=== PATIENT | male | born 1975 | race Hispanic/Latino ===

== ENCOUNTER 2016-08-04 13:54 | Emergency (ER) | payer OTHER ==
[~2016-08-04] VITALS: Ht 172.7 cm; Wt 90.7 kg
[2016-08-04 14:00] VITALS: BP 156/74
[2016-08-04] MEDS ORDERED: OMEPRAZOLE40 M1 PO (14:32)
--- NOTE | 2016-08-04 14:50 | ED MVC/FALL/TRAUMA COMPLAINT ---
History of Present Illness General Chief Complaint: Fall Stated Complaint: FALL, MULTIPLE COMPLAINTS Vital Signs & Intake/Output Vital Signs & Intake/Output Vital Signs Date Time Temp Pulse Resp B/P Pulse O2 O2 Flow FiO2 Ox Delivery Rate 08/04 1400 97.0 100 18 156/74 98 Room Air Allergies Coded Allergies: acetaminophen (From TYLENOL) (RASH 08/04/16) ibuprofen (RASH 08/04/16) tramadol (RASH 08/04/16) Reconcile Medications Omeprazole 40 MG CAPSULE.DR 1 CAP PO DAILY GI (Reported) Triage Note: PT TO ER WITH MULTIPLE COMPLAINTS, STATES THAT LAST SUNDAY HE TRIPPED AND FELL ON SIDEWALK WALKING HOME FROM TRAIN STATION, STATES THAT HE FELL BACKWARDS AND HIT THE BACK OF HIS HEAD, DENIES LOC, ALSO STATES THAT HE HAS L ELBOW PAIN,R FOOT PAIN AND L TOE PAIN. PT REFUSES MOTRIN OR TYLENOL AT TRIAGE, STATES THAT HE IS ALLERGIC AND HE GETS ITCHY. Past History Travel History Traveled to [place] past 21 day No Medical History Neurological: NONE EENT: NONE Cardiovascular: hypertension Respiratory: NONE Gastrointestinal: GERD Hepatic: NONE Renal: NONE Musculoskeletal: chronic back pain Psychiatric: depression Endocrine: NONE Blood Disorders: NONE Cancer(s): NONE Psychosocial History What is your primary language Maori Tobacco Use: Never used ETOH Use: denies use Illicit Drug Use: denies illicit drug use Departure Departure Condition: Stable Referrals: PATIENT HAS NO PRIMARY CARE DR (PCP/Family) Departure Forms: Customer Survey General Discharge Information
== END 2016-08-04 15:00 | disposition admitted as inpatient to this hospital (09) ==
LOC: ERH 13:54
DX: M25.522 Pain in left elbow (principal); M79.671 Pain in right foot; M79.675 Pain in left toe(s); W18.39XA Other fall on same level, initial encounter

== ENCOUNTER 2016-08-09 12:58 | Emergency (ER) | payer OTHER ==
[~2016-08-09] VITALS: Ht 172.7 cm; Wt 90.7 kg
[~2016-08-09 12:58] MED LIST: OMEPRAZOLE40 M1 PO
--- NOTE | 2016-08-09 13:34 | ED GENERAL ADULT ---
History of Present Illness General Chief Complaint: Upper Extremity Problem Stated Complaint: L ELBOW PAIN Source: patient, old records Exam Limitations: no limitations Vital Signs & Intake/Output Vital Signs & Intake/Output Vital Signs Date Time Temp Pulse Resp B/P Pulse O2 O2 Flow FiO2 Ox Delivery Rate 08/09 1451 98.7 81 18 143/105 98 08/09 1303 97.7 97 20 142/104 97 Room Air Allergies Coded Allergies: acetaminophen (From TYLENOL) (RASH 08/04/16) ibuprofen (RASH 08/04/16) tramadol (RASH 08/04/16) Reconcile Medications Omeprazole 40 MG CAPSULE. 1 CAP PO DAILY GI (Reported) Oxycodone HCl 5 MG TABLET 1 TAB PO BIDP PRN PAIN Triage Note: PT C/O LEFT ELBOW PAIN AND PAIN UNDER LEFT TOES. STATES HE TRIPPED AND FELL A WEEK AGO INJURING THE BACK OF HIS HEAD AND LOWER BACK Triage Nurses Notes Reviewed? yes Onset: Gradual Duration: week(s): (1) Timing: remote history Injury Environment: home Severity: moderate Modifying Factors: Improves With: immobilization. Worsens With: movement. HPI: Patient is a 40-year-old male presenting to the emergency department with chief complaint of left foot, left elbow pain after falling about 1-2 weeks ago. Patient reports that he stepped in a pothole while walking and fell and landed on his left elbow. He also reports that he hit the back of his head. No loss of consciousness. Denies any nausea or vomiting. No dizziness or visual changes. Denies any precipitating factors prior to the fall. He has been using Tylenol without relief. Pain is achy throbbing worse with ambulation and palpation. He checked into the emergency department about one week ago for evaluation of the pain but decided not to wait because there were several people here and waiting too long. Denies seeking out care from his primary care physician. (MAY PEGUERO) Past History Travel History Traveled to [place] past 21 day No Medical History Any Pertinent Medical History? see below for history Neurological: NONE EENT: NONE Cardiovascular: hypertension Respiratory: NONE Gastrointestinal: GERD Hepatic: NONE Renal: NONE Musculoskeletal: chronic back pain Psychiatric: depression Endocrine: NONE Blood Disorders: NONE Cancer(s): NONE Surgical History Surgical History: non-contributory Psychosocial History What is your primary language Vietnamese Tobacco Use: Never used ETOH Use: denies use Illicit Drug Use: denies illicit drug use Family History Hx Contributory? No (MAY PEGUERO) Review of Systems Review of Systems Constitutional: Reports: no symptoms. Comments Review of systems: See HPI, All other systems negative. Constitutional, no chills fever or weight loss HEENT: No visual changes no sore throat no congestion Cardiovascular: No chest pain ,palpitation , orthopnea or ankle swelling Skin, no jaundice no rashes Respiratory: No dyspnea cough sputum or hemoptysis GI: No nausea no vomiting : No dysuria No hematuria Muscle skeletal: no back pain, no neck pain, Neurologic: No numbness no confusion Psych: No stress anxiety or depression,. Heme/endocrine: No bruising no bleeding no polyuria or polydipsia Immunology: No splenectomy or history of AIDS (MAY PEGUERO) Physical Exam Physical Exam General Appearance: well developed/nourished, no apparent distress, alert, awake , comfortable Comments: Well-developed well-nourished person in no acute distress HEENT: Normal EENT exam, extraocular motion intact, no nystagmus. Pupils equally round and reactive to light and accommodation. Nose is atraumatic. External auditory canal and Tympanic membranes clear. Pharynx normal. No swelling or edema. No bogginess or step off deformities palpated on the scalp. Neck: Supple, no lymphadenopathy, normal range of motion without pain or tenderness, no C-spine tenderness. Back: Nontender, no CVA tenderness. Full range of motion Cardiovascular: Regular rate and rhythms no murmurs rubs or gallops, normal JVP Respiratory: Chest nontender. No respiratory distress.breath sounds clear to auscultation bilaterally Extremity: No edema, no calf tenderness to palpation, normal and equal pulses. Tender to palpation over the ball of the left foot, no signs of trauma. Full range of motion of left foot, left ankle. Tender to palpation over the left lateral epicondyle, full range of motion of left elbow. No obvious deformity or edema. Neuro: Alert oriented x3, motor sensory normal, cranial nerves II through XII grossly intact. Cerebellar testing is unremarkable. Skin: No appreciable rash on exposed skin, skin is warm and dry. Psych: Mood and affect is normal, memory and judgment is normal. Core Measures ACS in differential dx? No CVA/TIA Diagnosis: No Severe Sepsis Present: No Septic Shock Present: No (MAY PEGUERO) Progress Differential Diagnoses I considered the following diagnoses in my evaluation of the patient: Fracture, dislocation, contusion, minor head injury, concussion Plan of Care: Orders Procedure Date/time Status XRY-FOOT COMPLETE, LEFT 08/09 1400 Active XRY-ELBOW 3 OR MORE VIEWS, L 08/09 1400 Active Diagnostic Imaging: Viewed by Me: Radiology Read. Discussed w/RAD: Radiology Read. Radiology Impression: PATIENT: YOON YOUNG PRESENT AGE: 40 PATIENT ACCOUNT NO: [id number] : 73 LOCATION: [facility] ORDERING PHYSICIAN: MAY IRVIN SERVICE DATE: 08/09/16 EXAM TYPE: RAD - XRY-ELBOW 3 OR MORE VIEWS, L; XRY-FOOT COMPLETE, LEFT EXAMINATION: LEFT ELBOW SERIES LEFT FOOT SERIES CLINICAL INFORMATION: Pain after fall COMPARISON: None TECHNIQUE: 4 views of the left elbow and 3 views of the left foot FINDINGS: Left elbow: The bones joints and soft tissues are normal. Left foot: Small plantar calcaneal spur. The bones joints and soft tissues are normal. IMPRESSION: Left elbow: Normal. Left foot: Small plantar calcaneal spur Initial ED EKG: none (MAY PEGUERO) Departure Departure Time of Disposition: 150 Disposition: HOME OR SELF CARE Condition: Stable Clinical Impression Primary Impression: Contusion Qualifiers: Encounter type: initial encounter Contusion area: elbow Laterality: left Qualified Code: S50.02XA - Contusion of left elbow, initial encounter Referrals: PATIENT HAS NO PRIMARY CARE DR (PCP/Family) Additional Instructions: Follow-up with your primary care physician call to make an appointment. Rest ice and elevate. Take oxycodone as prescribed for pain. Return for worsening symptoms or concerns. Departure Forms: Customer Survey General Discharge Information Prescriptions: Current Visit Scripts Oxycodone HCl 1 TAB PO BIDP PRN PAIN #6 TAB (MAY PEGUERO) PA/GRAIN MIXER Co-Sign Statement Statement: ED Attending supervision documentation- [] I saw and evaluated the patient. I have also reviewed all the pertinent lab results and diagnostic results. I agree with the findings and the plan of care as documented in the PA's/GRAIN MIXER's documentation. x I have reviewed the ED Record and agree with the PA's/GRAIN MIXER's documentation. [] Additions or exceptions (if any) to the PAs/GRAIN MIXER's note and plan are summarized below: [] (SANJEEV EGAN,EFFIE) Critical Care Note Critical Care Note Critical Care Time: non-applicable (JAMMIE IRVIN,MAY)
[2016-08-09 14:51] VITALS: BP 143/105
--- NOTE | 2016-08-09 14:52 | RADIOLOGY REPORT ---
EXAMINATION: LEFT ELBOW SERIES LEFT FOOT SERIES CLINICAL INFORMATION: Pain after fall COMPARISON: None TECHNIQUE: 4 views of the left elbow and 3 views of the left foot FINDINGS: Left elbow: The bones joints and soft tissues are normal. Left foot: Small plantar calcaneal spur. The bones joints and soft tissues are normal. IMPRESSION: Left elbow: Normal. Left foot: Small plantar calcaneal spur
[2016-08-09] MEDS ORDERED: OXYCODONE HCL5 M1 PO (15:09)
== END 2016-08-09 15:16 ==
LOC: ERH 12:58
DX: S59.902A Unspecified injury of left elbow, initial encounter (principal); S99.922A Unspecified injury of left foot, initial encounter; W18.09XA Striking against other object with subsequent fall, initial encounter; Y92.9 Unspecified place or not applicable; Y93.01 Activity, walking, marching and hiking
CPT/HCPCS: 73080-LT; 73630-LT

== ENCOUNTER 2016-10-02 13:01 | Emergency (ER) | payer OTHER ==
[~2016-10-02] VITALS: Ht 167.6 cm; Wt 95.3 kg
[~2016-10-02 13:01] MED LIST changes: +OXYCODONE HCL5 M1 PO
[2016-10-02 13:24] VITALS: BP 148/100
--- NOTE | 2016-10-02 13:40 | ED NECK/BACK PAIN COMPLAINT ---
History of Present Illness General Chief Complaint: General Adult Stated Complaint: NEEDS PAIN MED FELL LAST FELL 08/06 Source: patient, old records Exam Limitations: no limitations Vital Signs & Intake/Output Vital Signs & Intake/Output Vital Signs Date Time Temp Pulse Resp B/P B/P Pulse O2 O2 Flow FiO2 Mean Ox Delivery Rate 10/02 1324 98.6 100 18 148/100 98 Room Air Allergies Coded Allergies: ketorolac (From TORADOL) (Mild, RASH 10/02/16) ibuprofen (RASH 08/04/16) tramadol (RASH 08/04/16) acetaminophen (From TYLENOL) (Intermediate, VOMITING 10/02/16) Reconcile Medications Cyclobenzaprine HCl 5 MG TABLET 1 TAB PO TIDPRN PRN PAIN Omeprazole 40 MG CAPSULE.DR 1 CAP PO DAILY GI (Reported) Omeprazole 40 MG CAPSULE.DR 1 CAP PO DAILY PRN GERD Oxycodone HCl 5 MG TABLET 1 TAB PO BIDP PRN PAIN Oxycodone HCl/Acetaminophen (Percocet 5-325 MG Tablet) 5 MG-325 MG TABLET 1 TAB PO BID PRN PAIN Triage Note: 41 YO MALE TO TRIAGE C/O PAIN IN LOWER BACK AND BILATERAL LEGS. STATES WAS SENT IN BY MD FOR EVAL OF BILATERAL LEGS. PT STATES HE FELL ON 08/08 AND HAS HAD PAIN SINCE. Triage Nurses Notes Reviewed? yes Onset: Gradual Duration: week(s): (4), constant, waxing and waning Timing: recent history Quality/Severity: mild, moderate Location: R ANKLE L FOOT,LOW BACK Radiation: none Method of Injury: fall Loss of Consciousness: no loss of consciousness Modifying Factors: movement, pain medication, rest Associated Symptoms: DENIES HPI: 41-year-old male presents to ER with multiple complaints. He is complaining of right medial ankle and left second toe pain status post fall on August 08 as well as lower back pain. He states that he tripped over a concrete sidewalk The patient states that he is attempting to have a midline hernia repaired however states he was told that he needs to be cleared by orthopedist first prior to his hernia repair in regards to his ankle which she has not done. He ran out of pain medicine 2 weeks ago he states, he states feeling that helps is Percocet no recent new trauma or fall no numbness or tingling. He denies head pain head strike headache nausea vomiting chest pain or upper back pain. Patient is noted to be ambulatory to room 20 with steady gait by self (NURIA NIEVES) Past History Travel History Traveled to [place] past 21 day No Medical History Any Pertinent Medical History? see below for history Neurological: NONE EENT: NONE Cardiovascular: hypertension Respiratory: NONE Gastrointestinal: GERD Hepatic: NONE Renal: NONE Musculoskeletal: chronic back pain Psychiatric: depression Endocrine: NONE Blood Disorders: NONE Cancer(s): NONE Surgical History Surgical History: non-contributory Psychosocial History What is your primary language Hungarian Tobacco Use: Never used Family History Hx Contributory? No (NURIA NIEVES) Review of Systems Review of Systems Constitutional: Reports: see HPI. All Other Systems: Reviewed and Negative Comments Review of systems: See HPI, All other systems negative. Constitutional, no chills no fever, no malaise HEENT: No visual changes no sore throat no congestion, no ear pain Cardiovascular: No chest pain , no palpitation , Skin: no rashes, no change in skin Respiratory: No dyspnea no cough no sputum GI: No nausea no vomiting, no diarrhea : No dysuria Muscle skeletal: No joint pain, no joint swelling, back pain, no neck pain, Neurologic: No numbness no confusion, no headache Psych: No stress no depression,. Heme/endocrine: No bruising no bleeding Immunology: No lymphadenopathy (NURIA NIEVES) Physical Exam Physical Exam General Appearance: well developed/nourished, alert, awake Neck: supple, full range of motion, normal alignment Comments: Well-developed well-nourished person in no acute distress HEENT: Normal EENT exam; PERRL, EOMI, no nystagmus. HEAD is atraumatic. moist mucous membranes. Neck: Supple, normal range of motion without pain or tenderness Back: Nontender, no CVA tenderness. Full range of motion Cardiovascular: Regular rate and rhythms no murmurs rubs or gallops, normal JVP Respiratory: Chest nontender.There were no bony deformities, no asymmetry. No respiratory distress. Patient speaking in full complete sentences. Breath sounds clear to auscultation bilaterally: NO W/R/R Abdomen: Soft, nontender nondistended, Upper Extremity: No edema, full range of motion of extremities, normal and equal pulses bilaterally, 5 out of 5 strength noted to bilateral upper extremities Hip/Pelvis: Atraumatic/Stable. FROM. No pain with pelvic compression Knee: Atraumatic/stable. FROM. No joint swelling, no effusion. No laxity. Leg: Atraumatic. Nontender. No edema, 5 out of 5 strength in the lower extremity, normal dorsiflexion of great toe bilaterally, gross sensation is intact, patellar tendon reflex 2+ bilaterally. Ankle/Foot: Atraumatic/stable. Skin intact. FROM. No swelling, no effusion. No laxity on exam Pulses: Normal/equal DP/PT pulses bilaterally. Brisk cap refill Neuro: Alert oriented x3, motor sensory normal, There were no obvious focal neurologic abnormalities. Skin: No appreciable rash on exposed skin, skin is warm and dry. Psych: Mood and affect is normal, memory and judgment is normal. (JAMAL IRVIN,NURIA) Progress Differential Diagnosis: cauda equina syn, herniated disc, myofascial strain, spinal cord inj, FRACTURE SPRAIN CONTUSION Plan of Care: Orders Procedure Date/time Status XRY-TOES, LEFT 10/02 1351 Active XRY-ANKLE 3 OR MORE VIEWS R 10/02 1351 Active X-rays ordered CT [employer] PERSON reviewed Patient clinically looks well. Patient has no evidence of radiculopathy. No urinary bowel dysfunction. No numbness in the genital area. Strength intact. Gross sensation intact. Patient resting comfortably and in no apparent distress. Pain is worse with range of motion. Pain is reproducible IN back with no bruising or ecchymosis noted. . Patient is to follow-up with primary care doctor. May need MRI of the lower back at some point time. No concerns for cauda equina at this point time. I considered this diagnosis but patient does not have any symptoms consistent with cauda equina. Patient has no secondary causes of back pain. No cardiac, pulmonary, or abdominal complaints. No abdominal pain on exam. Cardiac pulmonary exam within normal limits. No rashes, afebrile, denies recent weight loss, dizziness, lightheadedness I discussed with the patient at length all of their results and incidental findings regarding a broken screw I discussed with him need to follow-up with his orthopedist. I had an extensive conversation regarding need for close follow up with their primary care physician this week as well as return precautions. I answered all of their questions, they feel comfortable with the plan and follow-up care. I discussed with the patient/family the medications that they will receive. I gave them signs and symptoms that could indicate an adverse reaction. I have advised them to limit their activities until they can see how they respond to the medication. (NURIA NIEVES) Departure Departure Disposition: HOME OR SELF CARE Condition: Stable Clinical Impression Primary Impression: Chronic ankle pain Referrals: PATIENT HAS NO PRIMARY CARE DR (PCP/Family) Additional Instructions: FOLLOW UP WITH YOUR ORTHOPEDIST WELL ASYOUR PMD THIS WEEK. OMPERAZOLE AND FLEXERIL DIRECTED. PERCOCET FOR BREAKTHROUGH PAIN- this is a narcotic and highly addictive no driving or drinking alcohol while taking Departure Forms: Customer Survey General Discharge Information Prescriptions: Current Visit Scripts Omeprazole 1 CAP PO DAILY PRN GERD #30 CAP Cyclobenzaprine HCl 1 TAB PO TIDPRN PRN PAIN #10 TAB Oxycodone HCl/Acetaminophen (Percocet 5-325 MG Tablet) 1 TAB PO BID PRN PAIN #10 TAB (NURIA NIEVES) PA/DIRECTOR EDUCATIONAL RADIO Co-Sign Statement Statement: ED Attending supervision documentation- I saw and evaluated the patient. I have also reviewed all the pertinent lab results and diagnostic results. I agree with the findings and the plan of care as documented in the PA's/DIRECTOR EDUCATIONAL RADIO's documentation. x I have reviewed the ED Record and agree with the PA's/DIRECTOR EDUCATIONAL RADIO's documentation. [] Additions or exceptions (if any) to the PAs/DIRECTOR EDUCATIONAL RADIO's note and plan are summarized below: [] (SANJEEV EGAN,EFFIE)
[2016-10-02] MEDS ORDERED: OMEPRAZOLE40 M1 PO (13:53)
[2016-10-02] MEDS ORDERED: CYCLOBENZAPRINE5 M2 PO (13:53)
[2016-10-02] MEDS ORDERED: PERCOCET 5-3251 EACH PO (13:53)
--- NOTE | 2016-10-02 14:59 | RADIOLOGY REPORT ---
EXAMINATION: LEFT TOES/RIGHT ANKLE CLINICAL INFORMATION: Injury with pain COMPARISON: Left foot films from 08/09/2016 TECHNIQUE: AP film of the left foot and 2 views of the left toes. 3 views of the right ankle FINDINGS: Left toes: No fracture, dislocation, or other acute bony or joint space abnormality is seen with attention to the distal anterior phalangeal joint of the second toe. No focal bone lesion is identified. There is no change compared to the 08/09/2016 study. Right ankle: There is a metallic plate along the lateral aspect of the distal fibula transfixed by a proximal and distal intact screw. A third screw traverses the metallic plate and crosses the inter osseous region into the distal tibia. This screw is broken within the distal tibia. There is no evidence for erosion of the bone around the screw and no acute bony fracture is seen. An additional screw crossing the interosseous region has been removed with a residual ghost tract. Endobutton is seen over the anteromedial aspect of the distal tibia just cephalad to the medial malleolus. There is a small cortical irregularity with periosteal reaction along the posterior aspect of the distal tibia. This may represent a chronic or subacute healing fracture of the posterior aspect of the distal tibia. There is a small amount of heterotopic bone or calcification projecting over the region of the interosseous membrane. There are several ossicles at the tip of the medial malleolus which may be sequela of old injury, but do not have the appearance of acute fracture. There is no dislocation Comparison with any prior films of the right ankle may be helpful to assess for any changes. IMPRESSION: 1. No acute bony or joint space abnormality is seen in the left second toe 2. There is evidence of old injury to the right ankle with fixation hardware as described. One of the screws transfixing the distal tibia and fibula is broken as described. 3. There is a subacute or old fracture of the posterior aspect of the distal tibia with associated periosteal reaction 4. No definite acute fracture or dislocation is seen in the right ankle.
== END 2016-10-02 15:30 ==
LOC: ERH 13:01
DX: G89.29 Other chronic pain (principal); M25.571 Pain in right ankle and joints of right foot
CPT/HCPCS: 73610-RT; 73660-LT